=== PATIENT | male | born 1990 | race Caucasian/White ===

== ENCOUNTER 2017-01-09 16:32 | Emergency (ER) | payer BC ==
[2017-01-09 16:36] VITALS: BP 156/93
--- NOTE | 2017-01-09 16:47 | UC ---
Eye Complaint HPI - HPI Summary HPI Summary: 26 YEAR OLD MALE WITH A PAST MEDICAL HISTORY OF ANXIETY PRESENTS WITH COMPLAINS OF RESOLVING VISION CHANGES AND HANDS SHAKING. - History of Current Complaint Chief Complaint: UCGeneralIllness Stated Complaint: CHANGE IN VISION Time Seen by Provider: 01/09/17 16:39 Hx Obtained From: Patient Onset/Duration: Sudden Onset Timing: Intermittent Episode Lasting Severity Initially: Moderate Severity Currently: Moderate Pain Scale Used: 0-10 Numeric - 5 Character: Sharp Aggravating Factor(s): Nothing Alleviating Factor(s): Nothing Associated Signs And Symptoms: Positive: Photophobia - Allergies/Home Medications Allergies/Adverse Reactions: Allergies Allergy/AdvReac Type Severity Reaction Status Date / Time No Known Allergies Allergy Verified 01/09/17 16:36 Home Medications: Home Medications ALPRAZolam TAB* [Xanax TAB*] 0.5 mg PO TID PRN 01/09/17 [History Confirmed 01/09] busPIRone TAB* [Buspar TAB*] 30 mg PO BID 01/09/17 [History Confirmed 01/09/17] PMH/Surg Hx/FS Hx/Imm Hx Previously Healthy: Yes - Surgical History Surgical History: Yes Surgery Procedure, Year, and Place: RIGHT EYE SURGERY - Family History Known Family History: Positive: Unknown - Social History Alcohol Use: Rare Substance Use Type: None Smoking Status (MU): Current Every Day Smoker Type: Cigarettes Amount Used/How Often: 1 ppd Review of Systems Constitutional: Negative Skin: Negative Eyes: Other - RIGHT EYE PTOSIS SECONDARY TO EYE SURGERY ENT: Negative Respiratory: Negative Cardiovascular: Negative Gastrointestinal: Negative Genitourinary: Negative Motor: Negative Neurovascular: Negative Musculoskeletal: Negative Neurological: Negative Psychological: Negative All Other Systems Reviewed And Are Negative: Yes Physical Exam Triage Information Reviewed: Yes Vital Signs: Initial Vital Signs Temp 37.1 C 01/09/17 16:34 Pulse 110 01/09/17 16:34 Resp 16 01/09/17 16:34 BP 156/93 01/09/17 16:34 Pulse Ox 100 01/09/17 16:34 Vital Signs Reviewed: Yes Eyes: Positive: Other: - RIGHT EYE PTOSIS SECONDARY TO SURGERY OF A REDUNDANT MUSCLE ENT Exam: Normal Dental Exam: Normal Neck exam: Normal Neck: Positive: 1 Respiratory Exam: Normal Cardiovascular Exam: Normal Abdominal Exam: Normal Musculoskeletal Exam: Normal Neurological Exam: Normal Psychological Exam: Normal Skin Exam: Normal Eye Complaint Course/Dx - Differential Dx/Diagnosis Provider Diagnoses: ANXIETY. HAND SHAKING. RESOLVED VISUAL CHANGES Discharge - Discharge Plan Condition: Stable Disposition: HOME Patient Education Materials: Anxiety (ED) Referrals: Paulo Harris MD [Primary Care Provider] - If Needed Owen Cruz MD [Medical Doctor] -
== END 2017-01-09 17:05 | disposition home or self-care (01) ==
LOC: UCEAST 16:32
DX: F41.9 Anxiety disorder, unspecified (principal); R25.1 Tremor, unspecified; H02.401 Unspecified ptosis of right eyelid; F17.210 Nicotine dependence, cigarettes, uncomplicated
CPT/HCPCS: 99211; G0463